=== PATIENT | male | born 1940 | race Caucasian/White ===

== ENCOUNTER 2019-03-29 06:56 | Emergency (ER) | payer OTHER | END 2019-03-29 09:16 | disposition home or self-care (01) | LOC: JER 06:56 ==

== ENCOUNTER 2021-05-29 08:47 | Observation (INO) | payer OTHER ==
[2021-05-29 08:55] VITALS: BMI 21.9
[2021-05-29 10:24] LABS: BASO % 0.9 % (0-2.0); HEMATOCRIT 35.5 % (35.4-49); HEMOGLOBIN 12.2 GM/dL (11.7-16.9); LYMPH % 30.2 % (8-40); MCH 31.7 pg (25.7-33.7); MCHC 34.2 g/dl (32.0-35.9); MEAN CELL VOLUME 92.6 fl (80-96); MONO % 10.9 % (3.8-10.2); PLATELET COUNT 103 10^3/uL (134-434); RBC 3.84 M/mm3 (4.00-5.60); RDW 14.3 % (11.9-15.9); WHITE BLOOD COUNT 2.7 K/mm3 (4.0-10.0)
[2021-05-29 10:49] LABS: CALCIUM 8.3 mg/dL (8.5-10.1)
[2021-05-29 10:50] LABS: BLOOD UREA NITROGEN 12.9 mg/dL (7-18)
[2021-05-29 10:53] LABS: CREATININE 0.9 mg/dL (0.55-1.3)
[2021-05-29 10:54] LABS: BILIRUBIN,TOTAL 0.7 mg/dL (0.2-1)
[2021-05-29 10:55] LABS: TOT PROT 6.6 g/dl (6.4-8.2)
[2021-05-29] MEDS ORDERED: ACETAMINOPHEN 325 MG TABLET (FP) PO PRN (17:04)
[2021-05-29] MEDS ORDERED: PANTOPRAZOLE 40 MG TABLET ONE (19:39)
[2021-05-29] MEDS ORDERED: LIDOCAINE 5% TOPICAL PATCH ONE (19:40)
[2021-05-29] MEDS: PANTOPRAZOLE 40 MG TABLET PO SCH (19:45)
[2021-05-29] MEDS: LIDOCAINE 5% TOPICAL PATCH TP SCH (19:45)
[2021-05-29] MEDS ORDERED: LIDOCAINE PATCH REMOVAL MC SCH (22:00)
[2021-05-30] MEDS ORDERED: ACETAMINOPHEN 325 MG TABLET (FP) ONE (00:46)
[2021-05-30 06:50] LABS: BASO % 0.6 % (0-2.0); EOS % 1.3 % (0-4.5); HEMOGLOBIN 12.9 GM/dL (11.7-16.9); LYMPH % 37.8 % (8-40); MCH 31.2 pg (25.7-33.7); MCHC 33.8 g/dl (32.0-35.9); MEAN CELL VOLUME 92.2 fl (80-96); MONO % 9.8 % (3.8-10.2); NEUT % 50.5 % (42.8-82.8); PLATELET COUNT 120 10^3/uL (134-434); RBC 4.13 M/mm3 (4.00-5.60); RDW 14.6 % (11.9-15.9); WHITE BLOOD COUNT 2.9 K/mm3 (4.0-10.0)
[2021-05-30] MEDS ORDERED: TAMSULOSIN HCL 0.4 MG CAP PO SCH (08:30)
[2021-05-30] MEDS ORDERED: FOLIC ACID 1 MG TABLET (FP) PO SCH (10:00)
[2021-05-30] MEDS ORDERED: LISINOPRIL 10 MG TABLET PO SCH (10:00)
[2021-05-30] MEDS ORDERED: APIXABAN 5 MG TABLET PO SCH (10:00)
[2021-05-30] MEDS ORDERED: TOLTERODINE TARTRATE LA 4 MG CAP.SR.24H (FP) PO SCH (10:00)
[2021-05-30] MEDS ORDERED: PANTOPRAZOLE 40 MG TABLET ONE (10:05)
[2021-05-30] MEDS ORDERED: FOLIC ACID 1 MG TABLET (FP) ONE (10:05)
[2021-05-30] MEDS ORDERED: APIXABAN 5 MG TABLET ONE (10:05)
[2021-05-30] MEDS ORDERED: LIDOCAINE 5% TOPICAL PATCH ONE (10:05)
[2021-05-30] MEDS ORDERED: TAMSULOSIN HCL 0.4 MG CAP ONE (10:05)
[2021-05-30] MEDS: LIDOCAINE 5% TOPICAL PATCH TP SCH (10:21)
[2021-05-30] MEDS: PANTOPRAZOLE 40 MG TABLET PO SCH (10:22)
[2021-05-30 16:36] VITALS: BP 127/75; PULSE 85; TEMP 97.1
== END 2021-05-30 16:35 | disposition home or self-care (01) ==
LOC: JER 08:47 → JERBED 15:30 → INTOOBSV 15:30 → UNDOADMOB 15:30 → JERBED 05-30 12:29
PROVIDERS: ADMIT Internal Medicine; ATTEND Internal Medicine
DX: S16.1XXA Strain of muscle, fascia and tendon at neck level, initial encounter (principal); W18.39XA Other fall on same level, initial encounter; Y93.89 Activity, other specified; Y92.89 Other specified places as the place of occurrence of the external cause; M25.512 Pain in left shoulder; G89.29 Other chronic pain; D72.819 Decreased white blood cell count, unspecified; D69.6 Thrombocytopenia, unspecified; I26.99 Other pulmonary embolism without acute cor pulmonale; R07.9 Chest pain, unspecified; I10 Essential (primary) hypertension; N32.81 Overactive bladder; N40.0 Benign prostatic hyperplasia without lower urinary tract symptoms
CPT/HCPCS: 36415; 71045-TC-FY; 71275-TC; 74174-TC; 80053; 82550; 84484; 85025; 93005; 93010; 99285-25; C9803; G0378; U0003; U0005

== ENCOUNTER 2022-04-28 10:30 | Inpatient (IN) | payer OTHER ==
[2022-04-28 10:43] VITALS: BMI 27.4
[2022-04-28] MEDS ORDERED: CEFTRIAXONE 1,000 MG in DEXTROSE 5%-WATER - 50 ML IVPB ONE (11:30)
[2022-04-28] MEDS ORDERED: ACETAMINOPHEN 1000 MG/100 ML BAG IVPB ONE (12:13)
[2022-04-28 12:14] LABS: BASO % 0.4 % (0-2.0); EOS % 0.9 % (0-4.5); HEMATOCRIT 33.9 % (35.4-49); HEMOGLOBIN 11.5 GM/dL (11.7-16.9); LYMPH % 11.2 % (8-40); MCH 31.5 pg (25.7-33.7); MCHC 33.9 g/dl (32.0-35.9); MEAN PLT VOLUME 9.1 fl (7.5-11.1); MONO % 9.2 % (3.8-10.2); NEUT % 78.3 % (42.8-82.8); PLATELET COUNT 122 10^3/uL (134-434); RBC 3.65 M/mm3 (4.00-5.60); RDW 14.5 % (11.9-15.9); WHITE BLOOD COUNT 5.8 K/mm3 (4.0-10.0)
[2022-04-28] MEDS ORDERED: ACETAMINOPHEN INJECTION 100 ML IVPB ONE (12:14)
[2022-04-28] MEDS ORDERED: CEFTRIAXONE 1 GM/50 ML BAG ONE (12:14)
[2022-04-28 12:28] LABS: CALCIUM 8.3 mg/dL (8.5-10.1); EPI CELLS >36 /uL (0-25.1); HYALINE CASTS 1 /uL (0-3.1); PH,URINE 6.5 (5.0-8.0); URINE APPEARANCE CLEAR; URINE BACTERIA 5 /uL (0-1359); URINE BILIRUBIN NEGATIVE (NEGATIVE); URINE COLOR DK YELLOW; URINE GLUCOSE (UA) NEGATIVE (NEGATIVE); URINE KETONE NEGATIVE (NEGATIVE); URINE LEUK ESTERASE 1+ (NEGATIVE); URINE NITRITE NEGATIVE (NEGATIVE); URINE PROTEIN 1+ (NEGATIVE); URINE WBC 74 /uL (0-25.8)
[2022-04-28 12:29] LABS: BLOOD UREA NITROGEN 13.5 mg/dL (7-18)
[2022-04-28 12:33] LABS: BILIRUBIN,TOTAL 0.8 mg/dL (0.2-1); TOT PROT 6.5 g/dl (6.4-8.2)
[2022-04-28] MEDS ORDERED: ACETAMINOPHEN 325 MG TABLET (FP) PO PRN (13:39)
[2022-04-28] MEDS ORDERED: LISINOPRIL 10 MG TABLET PO SCH (13:45)
[2022-04-28] MEDS ORDERED: APIXABAN 5 MG TABLET PO SCH (13:45)
[2022-04-28 14:56] LABS: URINE RBC 63.6 /uL (0-23.9)
[2022-04-28] MEDS: TOLTERODINE TARTRATE LA 4 MG CAP.SR.24H (FP) PO SCH (17:07)
[2022-04-28] MEDS: FOLIC ACID 1 MG TABLET (FP) PO SCH (17:08)
[2022-04-28] MEDS: PANTOPRAZOLE 40 MG TABLET PO SCH (17:11)
[2022-04-28] MEDS: LACTATED RINGERS SOLUTION 1,000 ML/1,000 ML INFUS.BAG IV SCH (17:16)
[2022-04-28] MEDS: TAMSULOSIN HCL 0.4 MG CAP PO SCH (21:28)
[2022-04-28] MEDS: APIXABAN 2.5 MG TABLET PO SCH (21:28)
[2022-04-29] MEDS: APIXABAN 2.5 MG TABLET PO SCH ×2 (09:19→22:17)
[2022-04-29] MEDS: FOLIC ACID 1 MG TABLET (FP) PO SCH (09:19)
[2022-04-29] MEDS: PANTOPRAZOLE 40 MG TABLET PO SCH (09:19)
[2022-04-29] MEDS: TOLTERODINE TARTRATE LA 4 MG CAP.SR.24H (FP) PO SCH (09:20)
[2022-04-29] MEDS: LIDOCAINE 5% TOPICAL PATCH TP SCH (09:23)
[2022-04-29] MEDS: CEFTRIAXONE 1 GM in DEXTROSE 5%-WATER - 50 ML IVPB SCH (09:25)
[2022-04-29] MEDS ORDERED: LISINOPRIL 10 MG TABLET PO SCH (10:00)
[2022-04-29 10:48] LABS: BASO % 0.3 % (0-2.0); EOS % 1.4 % (0-4.5); HEMATOCRIT 33.9 % (35.4-49); HEMOGLOBIN 11.8 GM/dL (11.7-16.9); LYMPH % 15.9 % (8-40); MCH 32.5 pg (25.7-33.7); MCHC 34.9 g/dl (32.0-35.9); MEAN CELL VOLUME 93.2 fl (80-96); MEAN PLT VOLUME 9.3 fl (7.5-11.1); MONO % 7.6 % (3.8-10.2); NEUT % 74.8 % (42.8-82.8); PLATELET COUNT 124 10^3/uL (134-434); RBC 3.64 M/mm3 (4.00-5.60); RDW 14.5 % (11.9-15.9); WHITE BLOOD COUNT 4.3 K/mm3 (4.0-10.0)
[2022-04-29 11:05] LABS: BLOOD UREA NITROGEN 12.5 mg/dL (7-18); CALCIUM 8.6 mg/dL (8.5-10.1)
[2022-04-29 11:09] LABS: CREATININE 0.9 mg/dL (0.55-1.3)
[2022-04-29] MEDS: LACTATED RINGERS SOLUTION 1,000 ML/1,000 ML INFUS.BAG IV SCH ×2 (11:17→22:17)
[2022-04-29] MEDS ORDERED: LIDOCAINE PATCH REMOVAL MC SCH (22:00)
[2022-04-29] MEDS: TAMSULOSIN HCL 0.4 MG CAP PO SCH (22:17)
[2022-04-29] MEDS ORDERED: LORazepam 2 MG/ML SDV VIAL IVPUSH PRN (23:56)
[2022-04-29] MEDS ORDERED: MELATONIN 5 MG TABLETS PO PRN (23:57)
[2022-04-30 05:21] VITALS: BP 128/72; PULSE 76; RESP 18; TEMP 97.9
[2022-04-30] MEDS ORDERED: LACTATED RINGERS SOLUTION 1,000 ML/1,000 ML INFUS.BAG IV SCH (07:51)
[2022-04-30] MEDS: CEFTRIAXONE 1 GM in DEXTROSE 5%-WATER - 50 ML IVPB SCH (09:47)
[2022-04-30] MEDS: APIXABAN 2.5 MG TABLET PO SCH (09:47)
[2022-04-30] MEDS: PANTOPRAZOLE 40 MG TABLET PO SCH (09:47)
[2022-04-30] MEDS: FOLIC ACID 1 MG TABLET (FP) PO SCH (09:47)
[2022-04-30] MEDS: TOLTERODINE TARTRATE LA 4 MG CAP.SR.24H (FP) PO SCH (09:47)
[2022-04-30] MEDS: LIDOCAINE 5% TOPICAL PATCH TP SCH (09:51)
[2022-04-30] MEDS ORDERED: CEFUROXIME AXETIL 500 MG TABLET PO SCH (10:00)
== END 2022-04-30 11:49 | disposition home health service (06) | DRG 689 ==
LOC: JER 10:30 → JERBED 13:23 → J8W 16:53
PROVIDERS: ADMIT Internal Medicine; ATTEND Internal Medicine
DX: N39.0 Urinary tract infection, site not specified (principal); G92.8 Other toxic encephalopathy; E11.9 Type 2 diabetes mellitus without complications; D69.6 Thrombocytopenia, unspecified; D64.9 Anemia, unspecified; N40.1 Benign prostatic hyperplasia with lower urinary tract symptoms; R41.82 Altered mental status, unspecified; F03.90 Unspecified dementia, unspecified severity, without behavioral disturbance, psychotic disturbance, mood disturbance, and anxiety; I10 Essential (primary) hypertension; I25.10 Atherosclerotic heart disease of native coronary artery without angina pectoris
CPT/HCPCS: 0241U-QW; 36415; 80048; 80053; 81003; 82728; 83036; 83540; 83550; 85025; 85651; 86140; 87040; 87086; 93005; 93010; 99285-25

== ENCOUNTER 2022-11-12 14:05 | Inpatient (IN) | payer OTHER ==
[2022-11-12 14:24] VITALS: BMI 25.0
[2022-11-12 15:53] LABS: BASO % 0.6 % (0-2.0); EOS % 3.6 % (0-4.5); HEMATOCRIT 33.9 % (35.4-49); HEMOGLOBIN 11.5 GM/dL (11.7-16.9); LYMPH % 35.3 % (8-40); MCH 31.6 pg (25.7-33.7); MEAN CELL VOLUME 92.7 fl (80-96); MEAN PLT VOLUME 9.4 fl (7.5-11.1); MONO % 11.2 % (3.8-10.2); NEUT % 49.3 % (42.8-82.8); PLATELET COUNT 105 10^3/uL (134-434); RBC 3.65 M/mm3 (4.00-5.60); RDW 14.6 % (11.9-15.9); WHITE BLOOD COUNT 2.8 K/mm3 (4.0-10.0)
[2022-11-12 16:16] LABS: ALBUMIN 3.3 g/dl (3.4-5.0); CALCIUM 8.5 mg/dL (8.5-10.1)
[2022-11-12 16:17] LABS: BLOOD UREA NITROGEN 21.6 mg/dL (7-18)
[2022-11-12 16:19] LABS: CREATININE 1.2 mg/dL (0.55-1.3)
[2022-11-12 16:21] LABS: BILIRUBIN,TOTAL 0.5 mg/dL (0.2-1); TOT PROT 6.7 g/dl (6.4-8.2)
[2022-11-12 16:22] LABS: ACTIVATED PTT 37.9 SECONDS (25.2-36.5); INR 1.18 (0.83-1.09); PROTHROMBIN TIME (PATIENT) 13.7 SEC (9.7-13.0)
[2022-11-12 18:37] LABS: EPI CELLS 2 /uL (0-25.1); HYALINE CASTS 0 /uL (0-3.1); URINE APPEARANCE CLEAR; URINE BILIRUBIN 1+ (NEGATIVE); URINE COLOR DK YELLOW; URINE GLUCOSE (UA) NEGATIVE (NEGATIVE); URINE KETONE NEGATIVE (NEGATIVE); URINE LEUK ESTERASE 1+ (NEGATIVE); URINE NITRITE POSITIVE (NEGATIVE); URINE PROTEIN TRACE (NEGATIVE); URINE RBC 10 /uL (0-23.9); URINE WBC 7 /uL (0-25.8)
[2022-11-12] MEDS ORDERED: CEFTRIAXONE 1,000 MG in DEXTROSE 5%-WATER - 50 ML IVPB ONE (19:11)
[2022-11-12] MEDS ORDERED: CEFTRIAXONE 1 GM/50 ML BAG ONE (19:48)
[2022-11-12] MEDS: LACTATED RINGERS SOLUTION 1,000 ML/1,000 ML INFUS.BAG IV SCH (20:01)
[2022-11-12 20:52] LABS: RETICULOCYTES 0.54 % (0.5-1.5)
[2022-11-12] MEDS ORDERED: ACETAMINOPHEN 325 MG TABLET (FP) PO PRN (21:15)
[2022-11-12] MEDS ORDERED: MECLIZINE HCL 12.5 MG TABLET PO PRN (21:16)
[2022-11-12] MEDS ORDERED: PATIENT'S OWN MEDICATION (NON-FORMULARY) (Linaclotide [Linzess] 72 MCG Capsule) PO SCH (22:00)
[2022-11-12] MEDS ORDERED: TAMSULOSIN HCL 0.4 MG CAP PO SCH (22:00)
[2022-11-12] MEDS ORDERED: TAMSULOSIN HCL 0.4 MG CAP ONE (22:43)
[2022-11-12] MEDS ORDERED: ATORVASTATIN CA 40 MG TABLET (FP) ONE (22:43)
[2022-11-12] MEDS ORDERED: DONEPEZIL HCL 5 MG TABLET (FP) ONE (22:43)
[2022-11-12] MEDS: SODIUM CHLORIDE 1,000 ML IV SCH (22:54)
[2022-11-12] MEDS: DONEPEZIL HCL 5 MG TABLET (FP) PO SCH (23:02)
[2022-11-12] MEDS: traZODone HCL 50 MG TABLET (FP) PO SCH (23:02)
[2022-11-12] MEDS: MEMANTINE HCL 10 MG TABLET (FP) PO SCH (23:02)
[2022-11-12] MEDS: ATORVASTATIN CA 40 MG TABLET (FP) PO SCH (23:05)
[2022-11-12] MEDS ORDERED: guaiFENesin 200 MG/10 ML 10 ML UNIT-DOSE CUPS PO PRN (23:20)
[2022-11-13] LABS: URINE BACTERIA 15.2 /uL (0-1359)
[2022-11-13 07:23] LABS: BASO % 0.4 % (0-2.0); EOS % 2.8 % (0-4.5); HEMATOCRIT 36.7 % (35.4-49); HEMOGLOBIN 12.5 GM/dL (11.7-16.9); LYMPH % 38.9 % (8-40); MCH 31.5 pg (25.7-33.7); MEAN CELL VOLUME 92.8 fl (80-96); MEAN PLT VOLUME 10.3 fl (7.5-11.1); NEUT % 49.9 % (42.8-82.8); PLATELET COUNT 107 10^3/uL (134-434); RBC 3.95 M/mm3 (4.00-5.60); RDW 14.8 % (11.9-15.9); WHITE BLOOD COUNT 3.6 K/mm3 (4.0-10.0)
[2022-11-13 08:15] LABS: CALCIUM 8.7 mg/dL (8.5-10.1)
[2022-11-13 08:16] LABS: ALBUMIN 3.6 g/dl (3.4-5.0); BLOOD UREA NITROGEN 18.2 mg/dL (7-18); MAGNESIUM 1.9 mg/dL (1.8-2.4)
[2022-11-13 08:18] LABS: PHOSPHOROUS 3.4 mg/dL (2.5-4.9)
[2022-11-13 08:19] LABS: CREATININE 1.1 mg/dL (0.55-1.3)
[2022-11-13 08:21] LABS: BILIRUBIN,TOTAL 1.6 mg/dL (0.2-1); TOT PROT 7.4 g/dl (6.4-8.2)
[2022-11-13 08:37] LABS: TOTAL IRON BINDING CAPACITY 256 ug/dL (250-450)
[2022-11-13 08:38] LABS: IRON SERUM 72 ug/dL (50-175)
[2022-11-13] MEDS ORDERED: FOLIC ACID 1 MG TABLET (FP) ONE (09:08)
[2022-11-13] MEDS ORDERED: ASPIRIN COATED 81 MG TABLET.EC ONE (09:08)
[2022-11-13] MEDS ORDERED: HEPARIN NA (PORCINE) 5,000 UNITS/ML 1ML VIAL ONE (09:09)
[2022-11-13] MEDS: ASPIRIN COATED 81 MG TABLET.EC PO SCH (09:09)
[2022-11-13] MEDS: HEPARIN NA (PORCINE) 5,000 UNITS/ML 1ML VIAL SQ SCH ×2 (09:09→21:45)
[2022-11-13] MEDS: FOLIC ACID 1 MG TABLET (FP) PO SCH (09:09)
[2022-11-13] MEDS ORDERED: CEFTRIAXONE 1 GM in DEXTROSE 5%-WATER - 50 ML IVPB ONE (10:00)
[2022-11-13] MEDS ORDERED: cefTAZidime PENTAHYDRATE 1 GM/50ML PRE-DOCKED (RESTRICTED TO ID) IVPB SCH (10:00)
[2022-11-13] MEDS ORDERED: LISINOPRIL 10 MG TABLET PO SCH (10:00)
[2022-11-13] MEDS ORDERED: ENOXAPARIN NA (PORCINE) 40 MG/0.4 ML DISP.SYRIN SQ SCH (10:00)
[2022-11-13 10:24] LABS: ERYTHROCYTE SEDIMENTATION RATE 18 mm/hr (0-20)
[2022-11-13 11:26] LABS: RETICULOCYTES 0.54 % (0.5-1.5)
[2022-11-13] MEDS: MEMANTINE HCL 10 MG TABLET (FP) PO SCH ×2 (11:50→21:45)
[2022-11-13 12:16] LABS: ANISOCYTOSIS 1+; MACROCYTOSIS 0
[2022-11-13 16:50] VITALS: RESP 18
[2022-11-13] MEDS: LACTATED RINGERS SOLUTION 1,000 ML/1,000 ML INFUS.BAG IV SCH (19:04)
[2022-11-13] MEDS: SODIUM CHLORIDE 1,000 ML IV SCH (19:06)
[2022-11-13] MEDS: ATORVASTATIN CA 40 MG TABLET (FP) PO SCH (21:44)
[2022-11-13] MEDS: DONEPEZIL HCL 5 MG TABLET (FP) PO SCH (21:44)
[2022-11-13] MEDS: traZODone HCL 50 MG TABLET (FP) PO SCH (21:45)
[2022-11-13] MEDS ORDERED: TAMSULOSIN HCL 0.4 MG CAP PO SCH (22:00)
[2022-11-14] MEDS: HEPARIN NA (PORCINE) 5,000 UNITS/ML 1ML VIAL SQ SCH (09:47)
[2022-11-14] MEDS: MEMANTINE HCL 10 MG TABLET (FP) PO SCH (09:47)
[2022-11-14] MEDS: ASPIRIN COATED 81 MG TABLET.EC PO SCH (09:47)
[2022-11-14] MEDS: FOLIC ACID 1 MG TABLET (FP) PO SCH (09:47)
[2022-11-14 13:51] LABS: CALCIUM 8.4 mg/dL (8.5-10.1)
[2022-11-14 14:44] VITALS: BP 111/66; PULSE 68; TEMP 98.5
== END 2022-11-14 16:27 | disposition home health service (06) | DRG 640 ==
LOC: JER 14:05 → JERBED 19:12 → OBSVTOIN 19:47 → J8W 11-13 09:38
PROVIDERS: ADMIT Internal Medicine; ATTEND Internal Medicine
DX: E86.0 Dehydration (principal); U07.1 COVID-19; I69.354 Hemiplegia and hemiparesis following cerebral infarction affecting left non-dominant side; N39.0 Urinary tract infection, site not specified; D61.818 Other pancytopenia; I10 Essential (primary) hypertension; E78.5 Hyperlipidemia, unspecified; N40.0 Benign prostatic hyperplasia without lower urinary tract symptoms; N32.81 Overactive bladder; D72.819 Decreased white blood cell count, unspecified; F03.90 Unspecified dementia, unspecified severity, without behavioral disturbance, psychotic disturbance, mood disturbance, and anxiety; D69.6 Thrombocytopenia, unspecified
CPT/HCPCS: 0241U-QW; 36415; 71045-TC-FY; 76775-TC; 76856-TC; 80048; 80053; 81003; 82272; 82728; 83540; 83550; 83735; 84100; 84484; 85025; 85045; 85610; 85651; 85730; 86140; 87086; 93005; 93010; 97116-GP; 97162-GP; 99285-25; G0378; J1644

== ENCOUNTER 2023-07-15 12:42 | Inpatient (IN) | payer OTHER ==
[~2023-07-15 12:42] MED LIST: TAMSULOSIN HCL 0.4 MG CAP PO SCH
[2023-07-15 13:40] LABS: BASO % 0.4 % (0-2.0); EOS % 0.8 % (0-4.5); HEMATOCRIT 34.5 % (35.4-49); HEMOGLOBIN 11.4 GM/dL (11.7-16.9); LYMPH % 16.3 % (8-40); MCH 31.3 pg (25.7-33.7); MEAN CELL VOLUME 95.1 fl (80-96); MEAN PLT VOLUME 9.3 fl (7.5-11.1); MONO % 9.1 % (3.8-10.2); NEUT % 73.4 % (42.8-82.8); PLATELET COUNT 117 10^3/uL (134-434); RBC 3.63 M/mm3 (4.00-5.60); RDW 14.2 % (11.9-15.9); WHITE BLOOD COUNT 2.8 K/mm3 (4.0-10.0)
[2023-07-15 13:46] LABS: INR 1.1 (0.83-1.09); PROTHROMBIN TIME (PATIENT) 12.8 SEC (9.7-13.0)
[2023-07-15 13:49] LABS: ACTIVATED PTT 30.7 SECONDS (25.2-36.5)
[2023-07-15 14:01] LABS: ALBUMIN 3.3 g/dl (3.4-5.0); CALCIUM 8.7 mg/dL (8.5-10.1); MAGNESIUM 1.6 mg/dL (1.8-2.4)
[2023-07-15 14:05] LABS: CREATININE 1.4 mg/dL (0.55-1.3)
[2023-07-15 14:07] LABS: BILIRUBIN,TOTAL 0.5 mg/dL (0.2-1); TOT PROT 6.2 g/dl (6.4-8.2)
[2023-07-15 14:28] LABS: EPI CELLS 7 /uL (0-25.1); HYALINE CASTS 1 /uL (0-3.1); URINE APPEARANCE CLEAR; URINE BACTERIA 15 /uL (0-1359); URINE BILIRUBIN NEGATIVE (NEGATIVE); URINE COLOR YELLOW; URINE GLUCOSE (UA) NEGATIVE (NEGATIVE); URINE KETONE NEGATIVE (NEGATIVE); URINE LEUK ESTERASE 2+ (NEGATIVE); URINE NITRITE NEGATIVE (NEGATIVE); URINE PROTEIN NEGATIVE (NEGATIVE); URINE RBC 21 /uL (0-23.9); URINE WBC 120 /uL (0-25.8)
[2023-07-15] MEDS ORDERED: SODIUM CHLORIDE 0.9% 500 ML INFUS.BAG IV ONE (15:18)
[2023-07-15] MEDS ORDERED: CEFTRIAXONE 1 GM/50 ML BAG ONE (15:29)
[2023-07-15] MEDS ORDERED: MAGNESIUM SULF 50% (8.12 MEQ/2 ML-1 GM VIAL) IVPB ONE (15:45)
[2023-07-15] MEDS ORDERED: MECLIZINE HCL 12.5 MG TABLET PO PRN (15:49)
[2023-07-15] MEDS ORDERED: LACTATED RINGERS SOLUTION 1,000 ML/1,000 ML INFUS.BAG IV SCH (16:00)
[2023-07-15] MEDS ORDERED: MAGNESIUM SULFATE IN WATER 2 GM/50 ML IVPB IVPB ONE (16:08)
[2023-07-15] MEDS ORDERED: PANTOPRAZOLE 40 MG TABLET PO ONE (16:08)
[2023-07-15] MEDS: PANTOPRAZOLE 40 MG TABLET PO SCH (16:12)
[2023-07-15 18:26] VITALS: BMI 28.3
[2023-07-15] MEDS: HEPARIN NA (PORCINE) 5,000 UNITS/ML 1ML VIAL SQ SCH (22:10)
[2023-07-15] MEDS: ATORVASTATIN CA 40 MG TABLET (FP) PO SCH (22:10)
[2023-07-15] MEDS: traZODone HCL 50 MG TABLET (FP) PO SCH (22:10)
[2023-07-15] MEDS: POLYETHYLENE GLYCOL (HEALTHYLAX) 3350 17 GM PACKET PO SCH (22:11)
[2023-07-15] MEDS: ACETAMINOPHEN 325 MG TABLET (FP) PO PRN (22:16)
[2023-07-16] MEDS: HEPARIN NA (PORCINE) 5,000 UNITS/ML 1ML VIAL SQ SCH ×3 (06:33→21:19)
[2023-07-16] MEDS ORDERED: LACTATED RINGERS SOLUTION 1,000 ML/1,000 ML INFUS.BAG IV SCH (06:49)
[2023-07-16 07:42] LABS: BASO % 0.4 % (0-2.0); HEMATOCRIT 32.3 % (35.4-49); LYMPH % 23.1 % (8-40); MCH 31.8 pg (25.7-33.7); MCHC 34.1 g/dl (32.0-35.9); MEAN CELL VOLUME 93.2 fl (80-96); MEAN PLT VOLUME 9.4 fl (7.5-11.1); MONO % 7.6 % (3.8-10.2); NEUT % 67.9 % (42.8-82.8); PLATELET COUNT 104 10^3/uL (134-434); RBC 3.46 M/mm3 (4.00-5.60); RDW 14.4 % (11.9-15.9); WHITE BLOOD COUNT 3.7 K/mm3 (4.0-10.0)
[2023-07-16 08:01] LABS: POTASSIUM 3.9 mmol/L (3.5-5.1)
[2023-07-16 08:06] LABS: BLOOD UREA NITROGEN 18.9 mg/dL (7-18)
[2023-07-16 08:08] LABS: CALCIUM 8.1 mg/dL (8.5-10.1); CREATININE 1.1 mg/dL (0.55-1.3); MAGNESIUM 1.9 mg/dL (1.8-2.4)
[2023-07-16] MEDS: PANTOPRAZOLE 40 MG TABLET PO SCH (09:04)
[2023-07-16] MEDS: POLYETHYLENE GLYCOL (HEALTHYLAX) 3350 17 GM PACKET PO SCH ×2 (09:05→21:20)
[2023-07-16] MEDS: FOLIC ACID 1 MG TABLET (FP) PO SCH (09:05)
[2023-07-16] MEDS ORDERED: MAGNESIUM SULF 50% (8.12 MEQ/2 ML-1 GM VIAL) IVPB ONE (11:30)
[2023-07-16] MEDS: TAMSULOSIN HCL 0.4 MG CAP PO SCH (15:44)
[2023-07-16] MEDS: LACTATED RINGERS SOLUTION 1,000 ML/1,000 ML INFUS.BAG IV SCH (15:47)
[2023-07-16] MEDS: ATORVASTATIN CA 40 MG TABLET (FP) PO SCH (21:19)
[2023-07-16] MEDS: traZODone HCL 50 MG TABLET (FP) PO SCH (21:19)
[2023-07-16] MEDS: ACETAMINOPHEN 325 MG TABLET (FP) PO PRN (21:20)
[2023-07-17] MEDS ORDERED: LORazepam 2 MG/ML SDV VIAL IVPUSH ONE (00:44)
[2023-07-17] MEDS: HEPARIN NA (PORCINE) 5,000 UNITS/ML 1ML VIAL SQ SCH ×3 (06:40→21:56)
[2023-07-17 07:59] LABS: BASO % 0.5 % (0-2.0); EOS % 0.6 % (0-4.5); HEMATOCRIT 33.3 % (35.4-49); HEMOGLOBIN 11.2 GM/dL (11.7-16.9); LYMPH % 19.7 % (8-40); MCHC 33.7 g/dl (32.0-35.9); MEAN CELL VOLUME 94.9 fl (80-96); MEAN PLT VOLUME 9.6 fl (7.5-11.1); MONO % 8.4 % (3.8-10.2); NEUT % 70.8 % (42.8-82.8); PLATELET COUNT 111 10^3/uL (134-434); RBC 3.51 M/mm3 (4.00-5.60); RDW 14.2 % (11.9-15.9); WHITE BLOOD COUNT 3.2 K/mm3 (4.0-10.0)
[2023-07-17] MEDS: TAMSULOSIN HCL 0.4 MG CAP PO SCH (08:06)
[2023-07-17 08:13] LABS: POTASSIUM 3.7 mmol/L (3.5-5.1)
[2023-07-17 08:20] LABS: CALCIUM 8.4 mg/dL (8.5-10.1)
[2023-07-17 08:21] LABS: BLOOD UREA NITROGEN 13.9 mg/dL (7-18)
[2023-07-17 08:24] LABS: CREATININE 1.1 mg/dL (0.55-1.3)
[2023-07-17] MEDS: POLYETHYLENE GLYCOL (HEALTHYLAX) 3350 17 GM PACKET PO SCH ×2 (10:08→21:56)
[2023-07-17] MEDS: PANTOPRAZOLE 40 MG TABLET PO SCH (10:09)
[2023-07-17] MEDS: FOLIC ACID 1 MG TABLET (FP) PO SCH (10:09)
[2023-07-17] MEDS: LACTATED RINGERS SOLUTION 1,000 ML/1,000 ML INFUS.BAG IV SCH (14:15)
[2023-07-17] MEDS: ATORVASTATIN CA 40 MG TABLET (FP) PO SCH (21:56)
[2023-07-17] MEDS: traZODone HCL 50 MG TABLET (FP) PO SCH (21:56)
[2023-07-18] MEDS: HEPARIN NA (PORCINE) 5,000 UNITS/ML 1ML VIAL SQ SCH (05:31)
[2023-07-18] MEDS: LACTATED RINGERS SOLUTION 1,000 ML/1,000 ML INFUS.BAG IV SCH (05:31)
[2023-07-18 09:35] VITALS: BP 143/88; PULSE 82; RESP 18; TEMP 98.3
[2023-07-18] MEDS: FOLIC ACID 1 MG TABLET (FP) PO SCH (09:35)
[2023-07-18] MEDS: PANTOPRAZOLE 40 MG TABLET PO SCH (09:35)
[2023-07-18] MEDS: POLYETHYLENE GLYCOL (HEALTHYLAX) 3350 17 GM PACKET PO SCH (09:36)
[2023-07-18] MEDS: TAMSULOSIN HCL 0.4 MG CAP PO SCH (09:36)
== END 2023-07-18 12:01 | disposition home or self-care (01) | DRG 689 ==
LOC: JER 12:42 → JERBED 15:16 → OBSVTOIN 15:16 → J4W 17:20
PROVIDERS: ADMIT Internal Medicine; ATTEND Internal Medicine
DX: N39.0 Urinary tract infection, site not specified (principal); G92.8 Other toxic encephalopathy; N17.9 Acute kidney failure, unspecified; I69.354 Hemiplegia and hemiparesis following cerebral infarction affecting left non-dominant side; J90 Pleural effusion, not elsewhere classified; E11.9 Type 2 diabetes mellitus without complications; I10 Essential (primary) hypertension; I25.10 Atherosclerotic heart disease of native coronary artery without angina pectoris; E78.5 Hyperlipidemia, unspecified; E88.09 Other disorders of plasma-protein metabolism, not elsewhere classified; N40.0 Benign prostatic hyperplasia without lower urinary tract symptoms; D69.6 Thrombocytopenia, unspecified; F03.90 Unspecified dementia, unspecified severity, without behavioral disturbance, psychotic disturbance, mood disturbance, and anxiety; I95.9 Hypotension, unspecified; R41.82 Altered mental status, unspecified; E77.8 Other disorders of glycoprotein metabolism; E86.0 Dehydration; E83.42 Hypomagnesemia; N32.81 Overactive bladder; D64.9 Anemia, unspecified; Z86.73 Personal history of transient ischemic attack (TIA), and cerebral infarction without residual deficits; R53.1 Weakness; G47.00 Insomnia, unspecified
CPT/HCPCS: 0241U-QW; 36415; 70450-TC; 71045-TC-FY; 80048; 80053; 81003; 82728; 82962; 83540; 83550; 83735; 84484; 85025; 85610; 85730; 87086; 93005; 93010; 97116-GP; 97162-GP; 99285-25; J1644

== ENCOUNTER 2024-06-12 17:32 | Emergency (ER) | payer OTHER ==
[2024-06-12 18:16] VITALS: TEMP 97.6; BMI 26.5
[2024-06-12 20:46] VITALS: BP 103/70; PULSE 81; RESP 16
== END 2024-06-12 21:16 | disposition home or self-care (01) ==
LOC: JER 17:32
DX: S70.212A Abrasion, left hip, initial encounter (principal); S80.212A Abrasion, left knee, initial encounter; M25.511 Pain in right shoulder; R55 Syncope and collapse; W18.39XA Other fall on same level, initial encounter; Y92.002 Bathroom of unspecified non-institutional (private) residence as the place of occurrence of the external cause
CPT/HCPCS: 72170-TC-FY; 73030-TC-LT-FY; 73502-TC-LT-FY; 73562-TC-LT-FY; 99284-25

== ENCOUNTER 2024-08-01 10:00 | Emergency (ER) | payer OTHER ==
[2024-08-01 10:27] VITALS: TEMP 98.4; BMI 22.6
[2024-08-01] MEDS ORDERED: ACETAMINOPHEN 325 MG TABLET (FP) ONE (11:26)
[2024-08-01] MEDS ORDERED: LIDOCAINE 4% PATCH TP ONE (11:27)
[2024-08-01] MEDS: LIDOCAINE 4% PATCH TP ONE (12:04)
[2024-08-01] MEDS: ACETAMINOPHEN 325 MG TABLET (FP) PO ONE (12:05)
[2024-08-01 13:35] VITALS: BP 99/67; PULSE 89; RESP 20
[2024-08-01] MEDS ORDERED: LIDOCAINE PATCH REMOVAL MC ONE (22:00)
== END 2024-08-01 13:34 | disposition home or self-care (01) ==
LOC: JER 10:00
DX: S00.03XA Contusion of scalp, initial encounter (principal); M54.2 Cervicalgia; W01.198A Fall on same level from slipping, tripping and stumbling with subsequent striking against other object, initial encounter
CPT/HCPCS: 70450-TC; 72125-TC; 93005; 93010; 99284-25

== ENCOUNTER 2024-08-08 15:47 | Inpatient (IN) | payer OTHER ==
[2024-08-08 18:06] LABS: VENOUS BASE EXCESS 3.1 mmol/L (-2-2); VENOUS O2 SATURATION 37.2 % (70-80); VENOUS PCO2 48.7 mmHg (38-52); VENOUS PH 7.387 (7.310-7.410)
[2024-08-08 18:10] LABS: BASO % 0.4 % (0-2.0); EOS % 0.3 % (0-4.5); HEMATOCRIT 26.9 % (35.4-49); HEMOGLOBIN 9.2 GM/dL (11.7-16.9); LYMPH % 12.1 % (8-40); MCH 33.5 pg (25.7-33.7); MCHC 34.2 g/dl (32.0-35.9); MEAN CELL VOLUME 97.8 fl (80-96); MEAN PLT VOLUME 8.6 fl (7.5-11.1); MONO % 6.8 % (3.8-10.2); NEUT % 80.4 % (42.8-82.8); PLATELET COUNT 129 10^3/uL (134-434); RBC 2.75 M/mm3 (4.00-5.60); WHITE BLOOD COUNT 3.3 K/mm3 (4.0-10.0)
[2024-08-08 18:23] LABS: POTASSIUM 4.5 mmol/L (3.5-5.1)
[2024-08-08 18:25] LABS: CALCIUM 9.4 mg/dL (8.5-10.1)
[2024-08-08 18:26] LABS: ALBUMIN 3.2 g/dl (3.4-5.0); BLOOD UREA NITROGEN 22.6 mg/dL (7-18); MAGNESIUM 1.6 mg/dL (1.8-2.4)
[2024-08-08 18:29] LABS: CREATININE 1.1 mg/dL (0.55-1.3)
[2024-08-08 18:30] LABS: BILIRUBIN,TOTAL 0.8 mg/dL (0.2-1)
[2024-08-08 18:31] LABS: TOT PROT 6.6 g/dl (6.4-8.2)
[2024-08-08] MEDS ORDERED: MECLIZINE HCL 12.5 MG TABLET PO PRN (18:43)
[2024-08-08] MEDS ORDERED: MAGNESIUM SULFATE IN WATER 2 GM/50 ML IVPB IVPB ONE (20:09)
[2024-08-08] MEDS ORDERED: PANTOPRAZOLE 40 MG TABLET PO ONE (20:09)
[2024-08-08] MEDS: PANTOPRAZOLE 40 MG TABLET PO SCH (20:20)
[2024-08-08] MEDS: MAGNESIUM 2GM/50ML STERILE WATER IVPB IVPB ONE (20:20)
[2024-08-08] MEDS ORDERED: TAMSULOSIN HCL 0.4 MG CAP ONE (21:50)
[2024-08-08] MEDS ORDERED: traZODone HCL 50 MG TABLET (FP) ONE (21:50)
[2024-08-08] MEDS ORDERED: ATORVASTATIN CA 40 MG TABLET (FP) ONE (21:50)
[2024-08-08] MEDS ORDERED: HEPARIN NA (PORCINE) 5,000 UNITS/ML 1ML VIAL ONE (21:51)
[2024-08-08] MEDS ORDERED: DONEPEZIL HCL 5 MG TABLET (FP) ONE (21:52)
[2024-08-08] MEDS: HEPARIN NA (PORCINE) 5,000 UNITS/ML 1ML VIAL SQ SCH (22:20)
[2024-08-08] MEDS: D5-1/2NS+10 MEQ KCL - 10 MEQ/1,000 ML INFUS.BAG IV SCH (22:20)
[2024-08-08] MEDS: traZODone HCL 50 MG TABLET (FP) PO SCH (22:21)
[2024-08-08] MEDS: ATORVASTATIN CA 40 MG TABLET (FP) PO SCH (22:21)
[2024-08-08] MEDS: MEMANTINE HCL 10 MG TABLET (FP) PO SCH (22:21)
[2024-08-08] MEDS: TAMSULOSIN HCL 0.4 MG CAP PO SCH (22:21)
[2024-08-08] MEDS: DONEPEZIL HCL 5 MG TABLET (FP) PO SCH (22:21)
[2024-08-09] MEDS: HEPARIN NA (PORCINE) 5,000 UNITS/ML 1ML VIAL SQ SCH (07:45)
[2024-08-09 08:27] LABS: BASO % 0.6 % (0-2.0); EOS % 1.5 % (0-4.5); HEMATOCRIT 24.7 % (35.4-49); HEMOGLOBIN 8.4 GM/dL (11.7-16.9); LYMPH % 39.7 % (8-40); MCH 33.5 pg (25.7-33.7); MCHC 34.2 g/dl (32.0-35.9); MEAN CELL VOLUME 97.9 fl (80-96); MEAN PLT VOLUME 8.6 fl (7.5-11.1); MONO % 8.2 % (3.8-10.2); PLATELET COUNT 116 10^3/uL (134-434); RBC 2.52 M/mm3 (4.00-5.60); RDW 14.8 % (11.9-15.9); WHITE BLOOD COUNT 2.8 K/mm3 (4.0-10.0)
[2024-08-09 08:48] LABS: POTASSIUM 4.2 mmol/L (3.5-5.1)
[2024-08-09 08:50] LABS: BLOOD UREA NITROGEN 20.2 mg/dL (7-18)
[2024-08-09 08:53] LABS: CREATININE 0.9 mg/dL (0.55-1.3)
[2024-08-09] MEDS ORDERED: D5-1/2NS+10 MEQ KCL - 10 MEQ/1,000 ML INFUS.BAG IV SCH (10:13)
[2024-08-09] MEDS: FOLIC ACID 1 MG TABLET (FP) PO SCH (10:17)
[2024-08-09] MEDS: ACETAMINOPHEN 325 MG TABLET (FP) PO PRN (10:17)
[2024-08-09] MEDS: ASPIRIN COATED 81 MG TABLET.EC PO SCH (10:17)
[2024-08-09] MEDS: LACTATED RINGERS SOLUTION 1,000 ML/1,000 ML INFUS.BAG IV SCH (17:29)
[2024-08-10 07:47] LABS: HEMATOCRIT 22.4 % (35.4-49); HEMOGLOBIN 7.5 GM/dL (11.7-16.9); MCH 33.4 pg (25.7-33.7); MCHC 33.6 g/dl (32.0-35.9); MEAN CELL VOLUME 99.4 fl (80-96); MEAN PLT VOLUME 8.6 fl (7.5-11.1); PLATELET COUNT 110 10^3/uL (134-434); RBC 2.25 M/mm3 (4.00-5.60); RDW 14.6 % (11.9-15.9)
[2024-08-10 07:59] LABS: WHITE BLOOD COUNT 1.8 K/mm3 (4.0-10.0)
[2024-08-10 08:08] LABS: POTASSIUM 4.1 mmol/L (3.5-5.1)
[2024-08-10 08:18] LABS: BLOOD UREA NITROGEN 16.9 mg/dL (7-18); CALCIUM 8.4 mg/dL (8.5-10.1); MAGNESIUM 1.6 mg/dL (1.8-2.4)
[2024-08-10 08:45] LABS: ANISOCYTOSIS 1+; MACROCYTOSIS 0
[2024-08-10] MEDS: MAGNESIUM 2GM/50ML STERILE WATER IVPB IVPB ONE (11:30)
[2024-08-10] MEDS: IRON SUCROSE INJECTION 300 MG in SODIUM CHLORIDE 235 ML IVPB ONE (12:30)
[2024-08-10 13:24] LABS: HIV INTERPRETATION NEGATIVE (NEGATIVE)
[2024-08-10 13:54] VITALS: BMI 26.2
[2024-08-10 18:38] LABS: EPI CELLS 4 /uL (0-25.1); HYALINE CASTS 2 /uL (0-3.1); URINE APPEARANCE CLOUDY; URINE BACTERIA 7220 /uL (0-1359); URINE BILIRUBIN NEGATIVE (NEGATIVE); URINE COLOR YELLOW; URINE GLUCOSE (UA) NEGATIVE (NEGATIVE); URINE KETONE NEGATIVE (NEGATIVE); URINE LEUK ESTERASE 2+ (NEGATIVE); URINE NITRITE POSITIVE (NEGATIVE); URINE PROTEIN NEGATIVE (NEGATIVE); URINE RBC 13 /uL (0-23.9); URINE WBC 351 /uL (0-25.8)
[2024-08-11] MEDS: LACTATED RINGERS SOLUTION 1,000 ML/1,000 ML INFUS.BAG IV SCH (06:51)
[2024-08-11 07:18] LABS: BASO % 0.5 % (0-2.0); EOS % 1.5 % (0-4.5); HEMATOCRIT 22.2 % (35.4-49); HEMOGLOBIN 7.6 GM/dL (11.7-16.9); LYMPH % 27.4 % (8-40); MCH 33.7 pg (25.7-33.7); MCHC 34.2 g/dl (32.0-35.9); MEAN CELL VOLUME 98.6 fl (80-96); MEAN PLT VOLUME 8.7 fl (7.5-11.1); MONO % 8.5 % (3.8-10.2); NEUT % 62.1 % (42.8-82.8); PLATELET COUNT 123 10^3/uL (134-434); RBC 2.25 M/mm3 (4.00-5.60); RDW 14.8 % (11.9-15.9); WHITE BLOOD COUNT 3.2 K/mm3 (4.0-10.0)
[2024-08-11 07:33] LABS: CALCIUM 8.7 mg/dL (8.5-10.1); MAGNESIUM 1.8 mg/dL (1.8-2.4)
[2024-08-11 07:37] LABS: CREATININE 0.8 mg/dL (0.55-1.3)
[2024-08-11 12:47] LABS: BASO % 0.6 % (0-2.0); EOS % 0.7 % (0-4.5); HEMATOCRIT 22.9 % (35.4-49); HEMOGLOBIN 7.7 GM/dL (11.7-16.9); LYMPH % 21.7 % (8-40); MCH 33.3 pg (25.7-33.7); MCHC 33.5 g/dl (32.0-35.9); MEAN CELL VOLUME 99.2 fl (80-96); MEAN PLT VOLUME 8.1 fl (7.5-11.1); MONO % 8.3 % (3.8-10.2); NEUT % 68.7 % (42.8-82.8); PLATELET COUNT 125 10^3/uL (134-434); RBC 2.31 M/mm3 (4.00-5.60); RDW 15.2 % (11.9-15.9); WHITE BLOOD COUNT 2.7 K/mm3 (4.0-10.0)
[2024-08-11 13:08] LABS: CALCIUM 8.5 mg/dL (8.5-10.1)
[2024-08-11 13:11] LABS: CREATININE 0.9 mg/dL (0.55-1.3)
[2024-08-11] MEDS ORDERED: MECLIZINE HCL 12.5 MG TABLET PO PRN (16:52)
[2024-08-11 16:58] VITALS: RESP 18
[2024-08-11] MEDS: ATORVASTATIN CA 40 MG TABLET (FP) PO SCH (22:21)
[2024-08-11] MEDS: MEMANTINE HCL 10 MG TABLET (FP) PO SCH (22:22)
[2024-08-11] MEDS: TAMSULOSIN HCL 0.4 MG CAP PO SCH (22:22)
[2024-08-11] MEDS: HEPARIN NA (PORCINE) 5,000 UNITS/ML 1ML VIAL SQ SCH (22:22)
[2024-08-11] MEDS: traZODone HCL 50 MG TABLET (FP) PO SCH (22:22)
[2024-08-11] MEDS: DONEPEZIL HCL 5 MG TABLET (FP) PO SCH (22:22)
[2024-08-12] MEDS: MAGNESIUM SULF 50% (8.12 MEQ/2 ML-1 GM VIAL) IVPB ONE (05:53)
[2024-08-12 09:28] LABS: BASO % 0.5 % (0-2.0); HEMATOCRIT 23.1 % (35.4-49); HEMOGLOBIN 7.9 GM/dL (11.7-16.9); LYMPH % 31.5 % (8-40); MCHC 34.3 g/dl (32.0-35.9); MEAN PLT VOLUME 8.6 fl (7.5-11.1); MONO % 10.2 % (3.8-10.2); NEUT % 55.8 % (42.8-82.8); PLATELET COUNT 121 10^3/uL (134-434); RBC 2.33 M/mm3 (4.00-5.60); RDW 14.9 % (11.9-15.9); WHITE BLOOD COUNT 2.6 K/mm3 (4.0-10.0)
[2024-08-12 10:12] LABS: CALCIUM 8.7 mg/dL (8.5-10.1)
[2024-08-12 10:13] LABS: BLOOD UREA NITROGEN 13.2 mg/dL (7-18)
[2024-08-12 10:16] LABS: CREATININE 0.9 mg/dL (0.55-1.3)
[2024-08-12] MEDS: ASPIRIN COATED 81 MG TABLET.EC PO SCH (10:32)
[2024-08-12] MEDS: PANTOPRAZOLE 40 MG TABLET PO SCH (10:32)
[2024-08-12] MEDS: FOLIC ACID 1 MG TABLET (FP) PO SCH (10:32)
[2024-08-12] MEDS: PANTOPRAZOLE SODIUM 40 MG VIAL IVPUSH SCH (13:25)
[2024-08-12] MEDS: ACETAMINOPHEN 325 MG TABLET (FP) PO PRN (18:54)
[2024-08-13 08:32] LABS: BASO % 0.6 % (0-2.0); EOS % 1.7 % (0-4.5); HEMATOCRIT 24.1 % (35.4-49); HEMOGLOBIN 8.3 GM/dL (11.7-16.9); LYMPH % 30.2 % (8-40); MCH 33.9 pg (25.7-33.7); MCHC 34.3 g/dl (32.0-35.9); MEAN CELL VOLUME 98.8 fl (80-96); MEAN PLT VOLUME 8.5 fl (7.5-11.1); MONO % 10.1 % (3.8-10.2); NEUT % 57.4 % (42.8-82.8); PLATELET COUNT 142 10^3/uL (134-434); RBC 2.44 M/mm3 (4.00-5.60); RDW 15.4 % (11.9-15.9); WHITE BLOOD COUNT 2.7 K/mm3 (4.0-10.0)
[2024-08-13 08:51] LABS: BLOOD UREA NITROGEN 13.5 mg/dL (7-18)
[2024-08-13 08:52] LABS: CALCIUM 8.7 mg/dL (8.5-10.1)
[2024-08-13 08:53] LABS: MAGNESIUM 1.8 mg/dL (1.8-2.4)
[2024-08-13 08:54] LABS: CREATININE 0.9 mg/dL (0.55-1.3)
[2024-08-13] MEDS: LACTATED RINGERS SOLUTION 1,000 ML/1,000 ML INFUS.BAG IV SCH (12:05)
[2024-08-13 19:08] LABS: FREE KAPPA,SERUM 38.5 mg/L (3.3-19.4)
[2024-08-14] MEDS: MAGNESIUM 2GM/50ML STERILE WATER IVPB IVPB ONE (06:18)
[2024-08-14 08:33] LABS: BASO % 0.6 % (0-2.0); EOS % 2.7 % (0-4.5); HEMATOCRIT 22.1 % (35.4-49); HEMOGLOBIN 7.5 GM/dL (11.7-16.9); LYMPH % 32.9 % (8-40); MCH 33.8 pg (25.7-33.7); MCHC 33.7 g/dl (32.0-35.9); MEAN CELL VOLUME 100.3 fl (80-96); MEAN PLT VOLUME 8.7 fl (7.5-11.1); NEUT % 52.8 % (42.8-82.8); PLATELET COUNT 144 10^3/uL (134-434); RDW 15.1 % (11.9-15.9); WHITE BLOOD COUNT 2.2 K/mm3 (4.0-10.0)
[2024-08-14] MEDS: PANTOPRAZOLE 40 MG TABLET PO SCH (09:10)
[2024-08-15 09:09] VITALS: TEMP 97.8
[2024-08-15 09:48] LABS: HEMOGLOBIN 8.3 GM/dL (11.7-16.9); MCH 34.4 pg (25.7-33.7); MCHC 34.7 g/dl (32.0-35.9); MEAN CELL VOLUME 99.2 fl (80-96); MEAN PLT VOLUME 8.4 fl (7.5-11.1); PLATELET COUNT 153 10^3/uL (134-434); RBC 2.42 M/mm3 (4.00-5.60); RDW 15.9 % (11.9-15.9)
[2024-08-15 10:04] LABS: WHITE BLOOD COUNT 1.9 K/mm3 (4.0-10.0)
[2024-08-15 11:45] LABS: ANISOCYTOSIS 0; MACROCYTOSIS 0
[2024-08-15 15:33] VITALS: BP 104/60; PULSE 80
== END 2024-08-15 18:33 | DRG 315 ==
LOC: JER 15:47 → JERBED 18:40 → J4W 08-09 00:13 → J8W 08-11 16:34
PROVIDERS: ADMIT Internal Medicine; ATTEND Internal Medicine
DX: I95.9 Hypotension, unspecified (principal); D61.818 Other pancytopenia; N39.0 Urinary tract infection, site not specified; E86.0 Dehydration; R53.1 Weakness; F03.90 Unspecified dementia, unspecified severity, without behavioral disturbance, psychotic disturbance, mood disturbance, and anxiety; I10 Essential (primary) hypertension; E78.5 Hyperlipidemia, unspecified; I25.10 Atherosclerotic heart disease of native coronary artery without angina pectoris; R29.6 Repeated falls; N40.0 Benign prostatic hyperplasia without lower urinary tract symptoms; E83.42 Hypomagnesemia
CPT/HCPCS: 0241U-QW; 36415; 71045-TC-FY; 74176-TC; 80048; 80053; 81003; 82272; 82378; 82607; 82728; 82747; 82803; 83010; 83540; 83550; 83735; 83883; 84153; 84484; 85014; 85025; 85045; 86301; 87040; 87086; 87186; 87389; 87635; 93005; 93010; 93306-TC; 93970-TC; 97116-GP; 97162-GP; 99285-25; J1644; J1756